=== PATIENT | female | born 1950 | race Caucasian/White ===

== ENCOUNTER 2021-08-14 11:55 | Outpatient (CLI) | payer MEDICARE | END 2021-08-14 11:56 | disposition home or self-care (01) | LOC: CSHMAMMO 11:55 | PROVIDERS: ATTEND Family Medicine | DX: Z12.31 Encounter for screening mammogram for malignant neoplasm of breast (principal); N64.89 Other specified disorders of breast | CPT/HCPCS: 77063; 77067 ==

== ENCOUNTER 2021-08-17 12:48 | Outpatient (CLI) | payer MEDICARE | END 2021-08-17 12:49 | disposition home or self-care (01) | LOC: CSHMAMMO 12:48 | PROVIDERS: ATTEND Family Medicine | DX: N64.89 Other specified disorders of breast (principal) | CPT/HCPCS: 76642; 77065; G0279 ==

== ENCOUNTER → 2021-08-21 | Day surgery (SDC) | payer MEDICARE | END | disposition home or self-care (01) | LOC: CSHULT 12:57 | PROVIDERS: ATTEND Family Medicine | PROC: 0H9T3ZX Drainage of Right Breast, Percutaneous Approach, Diagnostic (ICD-10-PCS; principal; 2021-08-21) | DX: C50.311 Malignant neoplasm of lower-inner quadrant of right female breast (principal) | CPT/HCPCS: 19083; 88305; 88341; 88342 ==

== ENCOUNTER 2021-11-26 14:24 | Outpatient (CLI) | payer MEDICARE | END 2021-11-26 14:25 | disposition home or self-care (01) | LOC: CSHMAMMO 14:24 | PROVIDERS: ATTEND Internal Medicine Hematology & Oncology | DX: Z13.820 Encounter for screening for osteoporosis (principal); C50.811 Malignant neoplasm of overlapping sites of right female breast; M85.89 Other specified disorders of bone density and structure, multiple sites | CPT/HCPCS: 77080 ==

== ENCOUNTER 2022-08-16 13:23 | Outpatient (CLI) | payer MEDICARE | END 2022-08-16 13:24 | disposition home or self-care (01) | LOC: CSHMAMMO 13:23 | PROVIDERS: ATTEND Surgery | DX: C50.911 Malignant neoplasm of unspecified site of right female breast (principal); Z98.890 Other specified postprocedural states | CPT/HCPCS: 77066; G0279 ==

== ENCOUNTER 2023-08-19 12:44 | Outpatient (CLI) | payer MEDICARE, OTHER | END 2023-08-19 12:45 | disposition home or self-care (01) | LOC: CSHMAMMO 12:44 | PROVIDERS: ATTEND Surgery | DX: Z08 Encounter for follow-up examination after completed treatment for malignant neoplasm (principal); Z85.3 Personal history of malignant neoplasm of breast | CPT/HCPCS: 77066; G0279 ==

== ENCOUNTER 2023-12-02 13:48 | Outpatient (CLI) | payer MEDICARE | END 2023-12-02 13:49 | disposition home or self-care (01) | LOC: CSHMAMMO 13:48 | PROVIDERS: ATTEND Internal Medicine Hematology & Oncology | DX: M81.0 Age-related osteoporosis without current pathological fracture (principal); C50.811 Malignant neoplasm of overlapping sites of right female breast; M85.89 Other specified disorders of bone density and structure, multiple sites | CPT/HCPCS: 77080 ==